=== PATIENT | male | born 1995 | race Caucasian/White ===

== ENCOUNTER 2025-05-08 09:47 | Emergency (ER) | payer SELFPAY ==
[2025-05-08] MEDS ORDERED: Ibuprofen 800 MG TAB ONE (09:58)
== END 2025-05-08 10:38 | disposition home or self-care (01) ==
LOC: BURERS 09:47
DX: S43.402A Unspecified sprain of left shoulder joint, initial encounter (principal); F17.220 Nicotine dependence, chewing tobacco, uncomplicated; W18.30XA Fall on same level, unspecified, initial encounter; Y93.64 Activity, baseball
CPT/HCPCS: 99283